=== PATIENT | male | born 1995 | race Caucasian/White ===

== ENCOUNTER 2018-07-22 23:45 | Emergency (ER) | payer BC ==
[2018-07-23 01:00] VITALS: BP 146/85; PULSE 83; TEMP 98.2; BMI 33.9
[2018-07-23] MEDS ORDERED: SILVER SULFADIAZINE 1% TOP CREAM 50 GM JAR TP ONE (01:32)
[2018-07-23] MEDS ORDERED: ACETAMINOPHEN 500 MG TABLET (FP) PO ONE (01:32)
[2018-07-23] MEDS ORDERED: DIPHTH,PERTUSS(ACELL),TET 0.5 ML DISP.SYRIN IM ONE (01:33)
--- NOTE | 2018-07-23 01:38 | PDOC ---
History of Present Illness <Zari Fraga - Last Filed: 07/23/18 02:14> - General History Source: Patient Exam Limitations: No Limitations - History of Present Illness Initial Comments: 07/23/18 01:33 Pt is a previously healthy 23yo M presenting to ED with burn to the L hand. Pt states that he was grabbing a johns out of the oven without a mitt on accident and burned his hand. He ran it under cold water and it started to feel better. He came to the ED because the pain woke him up from sleep. Pt denies breakage of skin. Denies numbness/tingling, weakness, decreased ROM. PMD: none PMH: none PSH: none Meds: none Allergies: nkda Social: occasional alcohol use <Suzette Carlisle - Last Filed: 07/23/18 02:18> - General Chief Complaint: Burn Stated Complaint: BURN Time Seen by Provider: 07/23/18 00:47 Past History <Zari Fraga - Last Filed: 07/23/18 02:14> - Suicide/Smoking/Psychosocial Hx Smoking History: Never smoked <Suzette Carlisle - Last Filed: 07/23/18 02:18> - Past Medical History Allergies/Adverse Reactions: Allergies Allergy/AdvReac Type Severity Reaction Status Date / Time No Known Allergies Allergy Verified 07/23/18 02:03 Home Medications: Ambulatory Orders Cephalexin [Keflex] 500 mg PO BID #9 capsule 07/23/18 *Physical Exam - Vital Signs Last Vital Signs Temp Pulse Resp BP Pulse Ox 98.2 F 83 19 146/85 98 07/23/18 00:38 07/23/18 00:38 07/23/18 00:38 07/23/18 00:38 07/23/18 00:38 <Zari Fraga - Last Filed: 07/23/18 02:14> - Vital Signs Last Vital Signs Temp Pulse Resp BP Pulse Ox 98.2 F 83 19 146/85 98 07/23/18 00:38 07/23/18 00:38 07/23/18 00:38 07/23/18 00:38 07/23/18 00:38 <Suzette Carlisle - Last Filed: 07/23/18 02:18> ED Treatment Course - Medications Given in the ED: ED Medications Discontinued Medications Generic Name Dose Route Start Last Admin Trade Name Tiago PRN Reason Stop Dose Admin Diphtheria/Tetanus/Acell Pertussis 0.5 ml 07/23/18 01:33 07/23/18 02:01 Boostrix - IM 07/23/18 01:34 0.5 ml .ONCE ONE Administration Oxycodone/Acetaminophen 1 combo 07/23/18 01:32 07/23/18 02:00 Percocet 5/325 - PO 07/23/18 01:33 1 combo ONCE ONE Administration Silver Sulfadiazine 1 applic 07/23/18 01:32 07/23/18 02:01 Silvadene - TP 07/23/18 01:33 1 tab ONCE ONE Administration <Zari Fraga - Last Filed: 07/23/18 02:14> Medical Decision Making - Medical Decision Making 07/23/18 01:35 Pt is a previously healthy 23yo M presenting to ED with burn to the L hand. Pt states that he was grabbing a johns out of the oven without a mitt on accident and burned his hand. He ran it under cold water and it started to feel better. He came to the ED because the pain woke him up from sleep. Pt denies breakage of skin. Denies numbness/tingling, weakness, decreased ROM. <Suzette Carlisle - Last Filed: 07/23/18 02:18> *DC/Admit/Observation/Transfer <Zari Fraga - Last Filed: 07/23/18 02:14> - Discharge Dispostion Decision to Admit order: No <Suzette Carlisle - Last Filed: 07/23/18 02:18> Diagnosis at time of Disposition: First degree burn of hand Qualifiers: Encounter type: initial encounter Burn of hand location: palm Laterality: left Qualified Code(s): T23.152A - Burn of first degree of left palm, initial encounter - Discharge Dispostion Disposition: HOME Condition at time of disposition: Improved - Prescriptions Prescriptions: Cephalexin [Keflex] 500 mg PO BID #9 capsule - Referrals Referrals: Boris Garvey MD [Staff Physician] - - Patient Instructions Printed Discharge Instructions: How to Take Care of a Burn, Diphtheria, Tetanus , and Pertussis Vaccine Additional Instructions: You were seen in the emergency room today for a burn. It looks like a first degree burn. Please keep the hand clean and dry. Use only mild soap to clean. Do not pick an any blisters forming. I recommend following up with Dr. Garvey who is a hand surgeon to make sure everything is ok. You can take Tylenol or ibuprofen for the pain as needed. A prescription for Keflex (cephalexin) was sent to your pharmacy. Please take as directed Come back to the emergency room if pain gets worse, the skin is shedding, You are unable to move your fingers or grasp anything, if you develop fever or if any new concerning symptom develops. Thank you
[2018-07-23] MEDS ORDERED: CEPHALEXIN MONOHYDRATE 500 MG CAPSULE (UD) PO ONE (02:13)
[2018-07-23] MEDS ORDERED: CEPHALEXIN MONOHYDRATE 500 MG CAPSULE (UD) ONE (02:18)
== END 2018-07-23 02:28 | disposition home or self-care (01) ==
LOC: JER 23:45
PROC: 3E0234Z Introduction of Serum, Toxoid and Vaccine into Muscle, Percutaneous Approach (ICD-10-PCS; principal; 2018-07-22)
DX: T23.152A Burn of first degree of left palm, initial encounter (principal); X15.8XXA Contact with other hot household appliances, initial encounter; Y93.G3 Activity, cooking and baking; Y92.000 Kitchen of unspecified non-institutional (private) residence as the place of occurrence of the external cause
CPT/HCPCS: 90715; 99281-25